=== PATIENT | female | born 1990 | race Caucasian/White ===

== ENCOUNTER 2018-08-08 14:36 | Emergency (ER) | payer SELFPAY ==
[~2018-08-08] VITALS: Ht 165.1 cm; Wt 74.0 kg
[2018-08-08 14:45] VITALS: BP 117/69; PULSE 70; RESP 24; Ht 165.1 cm; Wt 74.0 kg
--- NOTE | 2018-08-08 18:33 | ERD ---
ER Documentation Chief Complaint Chief Complaint VAGINAL BLEEDING - ; SENT BY PCP ( NO FHT) HPI History of Present Illness: 28-year-old female who denies a past medical history co Patient reports going to [facility] and there were no heart tones on ultrasound that she was sent to emergency department. justo in today due to vaginal bleeding while . Patient is G1, P0. According to last menstrual period she should be approximately 10 weeks and 6 days. Referral from clinic states that they measured approximately 7 weeks 5 days gestation but with no heart tones. Patient reports that she started spotting yesterday at approximately 1500 with light spotting, patient reports a little bit heavier spotting at 2300 last night. Patient reports that she has used to pantiliners today. Patient denies pain. At home pharmacological/nonpharmacological treatment for symptoms: Denies Denies social concerns; Denies recent foreign travel ROS All systems reviewed and are negative except as per history of present illness. Allergies Allergies: Coded Allergies: No Known Allergy (Unverified , 08/08/18) PMhx/Soc Medical and Surgical Hx: pt denies Medical Hx, pt denies Surgical Hx Hx Alcohol Use: No Hx Substance Use: No Hx Tobacco Use: No Smoking Status: Never smoker FmHx Family History: No diabetes, No coronary disease Physical Exam Vitals Vital Signs Date Temp Pulse Resp B/P (MAP) Pulse Ox O2 O2 Flow FiO2 Time Delivery Rate 08/08/18 98.6 70 24 117/69 98 14:45 (85) Physical Exam Const: No acute distress, afebrile Head: Atraumatic Eyes: Normal Conjunctiva ENT: Normal External Ears, Nose and Mouth. Neck: Full range of motion. No meningismus. Resp: Clear to auscultation bilaterally Cardio: Regular rate and rhythm, no murmurs Abd: Soft, non tender, non distended. No guarding, no masses, no rigidity Skin: No petechiae or rashes Back: No midline or flank tenderness Ext: No cyanosis, or edema Neur: Awake and alert x3, speaking in clear sentences, no focal deficits or facial asymmetry Psych: Normal Mood and Affect Result Diagram: 08/08/18 1517 Results 24 hrs Laboratory Tests Test 08/08/18 15:11 08/08/18 15:17 Urine Color YELLOW Urine Clarity CLEAR Urine pH 5.0 Urine Specific [place] 1.006 Urine Ketones 1+ mg/dL Urine Nitrite NEGATIVE mg/dL Urine Bilirubin NEGATIVE mg/dL Urine Urobilinogen NEGATIVE mg/dL Urine Leukocyte Esterase NEGATIVE Hero/ul Urine Microscopic RBC 5 /HPF Urine Microscopic WBC 1 /HPF Urine Squamous Epithelial Cells FEW /HPF Urine Bacteria FEW /HPF Urine Hemoglobin 2+ mg/dL Urine Glucose NEGATIVE mg/dL Urine Total Protein NEGATIVE mg/dl White Blood Count 6.2 10^3/ul Red Blood Count 4.90 10^6/ul Hemoglobin 12.5 g/dl Hematocrit 39.8 % Mean Corpuscular Volume 81.2 fl Mean Corpuscular Hemoglobin 25.5 pg Mean Corpuscular Hemoglobin Concent 31.4 g/dl Red Cell Distribution Width 23.8 % Platelet Count 244 10^3/UL Mean Platelet Volume 10.0 fl Immature Granulocytes % 0.200 % Neutrophils % 43.0 % Lymphocytes % 41.9 % Monocytes % 7.3 % Eosinophils % 7.1 % Basophils % 0.5 % Nucleated Red Blood Cells % 0.0 /100WBC Immature Granulocytes # 0.010 10^3/ul Neutrophils # 2.7 10^3/ul Lymphocytes # 2.6 10^3/ul Monocytes # 0.5 10^3/ul Eosinophils # 0.4 10^3/ul Basophils # 0.0 10^3/ul Nucleated Red Blood Cells # 0.0 10^3/ul Beta HCG, Quantitative 62951.0 mIU/ml Procedures/MDM ED COURSE: ED course includes a thorough examination and history. The patient was stable throughout ED course. I kept the patient and/or family informed of laboratory and diagnostic imaging results throughout the ED course. LABS: CBC: no e/o of systemic infection or severe anemia CMP: no e/o severe acidosis, alkalosis, renal failure, diabetic ketoacidosis, liver disease Urinalysis positive for 2+ hemoglobin, few bacteria. Rh/type: O+, no RhoGam indicated MEDICATIONS GIVEN IN ER: None DIAGNOSTIC IMAGING: Read by radiologist. IMPRESSION: 1-turo-5-day intrauterine gestation with demise. No subchorionic hemorrhage. .Michel Harris MD, MD Date Time Electronically viewed and signed by .Michel Harris MD, on 08/08/2018 16:42 PROCEDURES: None. MEDICAL DECISION MAKING: Low suspicion for life-threatening medical emergency. Otherwise healthy patient presenting with constellation of symptoms likely representing demise as characterized by history, physical exam findings, lab findings, imaging findings. Consultation with [facility] by phone: Spoke to heel sprayer and updated her on results. States that patient has an appointment already scheduled for tomorrow. Informed to tell patient to keep appointment as scheduled. Patient reassessment @ 1650: Results discussed with patient. Patient is visibly upset. Patient hemodynamically stable. No respiratory distress, otherwise relatively well appearing and nontoxic. Disposition given. Patient educated on diagnoses, prescriptions, follow-up care, return precautions. Strict return precautions given for worsening condition; questions answered discharge. Patient verbalizes understanding of discharge instructions. PRESCRIPTIONS FOR HOME: None DISPOSITION: DISCHARGE At this time, patient is stable for discharge and outpatient management. I have instructed the patient to follow-up with his/her primary care physician in 1-2 days. I have discussed with the patient the possibility of needing to see a specialist for further workup and imaging studies if symptoms persist. I have instructed the patient to promptly return to the ER for any new or worsening symptoms including increased pain, fever, nausea, vomiting, weakness or LOC. The patient and/or family expressed understanding of and agreement with this plan. All questions were answered. Home care instructions were provided. DISCLAIMER: Inadvertent spelling and grammatical errors are likely due to EHR/dictation software use and do not reflect on the overall quality of patient care. Also, please note that the electronic time recorded on this note does not necessarily reflect the actual time of the patient encounter. Departure Diagnosis: Primary Impression: demise Condition: Stable Patient Instructions: Understanding Miscarriage: Emotions, Missed Miscarriage Additional Instructions: Thank you very much for allowing us to participate in your care. Your health and safety is our top priority at [facility]. It is important to read all discharge instructions and education provided in your discharge packet. Keep your appointment that is scheduled tomorrow with your CUSTOMER ENERGY SPECIALIST. If the symptoms get worse and your provider is unavailable, return to the Emergency Department immediately. ARIC SIDHU NP Aug 08, 2018 18:33
== END 2018-08-08 17:02 | disposition home or self-care (01) ==
LOC: FTE 14:36
DX: O02.1 Missed abortion (principal)
CPT/HCPCS: 36415; 76801; 76817; 81001; 84702; 85025; 86900; 86901

== ENCOUNTER 2018-08-26 22:28 | Emergency (ER) | payer SELFPAY ==
[~2018-08-26] VITALS: Ht 165.1 cm; Wt 74.8 kg
[2018-08-26 22:31] VITALS: Ht 165.1 cm; Wt 74.8 kg
[2018-08-27] MEDS ORDERED: KETOROLAC 60 MG INJ IM STA (01:27)
--- NOTE | 2018-08-27 01:30 | ERD ---
ER Documentation Chief Complaint Chief Complaint VB, CRAMPING. RECENT MISCARRIAGE HPI Patient is a 28 years old female with no known past medical history presenting to the clinic with persistent vaginal bleeding and pelvic pain X 2 weeks. Patient was seen and evaluated on August 08 with demise. Patient reports she did not follow-up with her ANESTHESIOLOGIST ASSISTANT CERTIFIED. She reports her pain has worsened since the day of her miscarriage. Patient denies fever, chills, night sweats, abdominal pain, bloating, dysuria, urinary, urinary urgency, constipation, diarrhea. Patient reports the bleeding is persistent and heavy. ROS All systems reviewed and are negative except as per history of present illness. Allergies Allergies: Coded Allergies: No Known Allergy (Unverified , 08/08/18) PMhx/Soc History of Surgery: No Anesthesia Reaction: No Hx Neurological Disorder: No Hx Respiratory Disorders: No Hx Cardiac Disorders: No Hx Psychiatric Problems: No Hx Miscellaneous Medical Probl: No Hx Alcohol Use: No Hx Substance Use: No Hx Tobacco Use: No Smoking Status: Never smoker Physical Exam Vitals Vital Signs Date Temp Pulse Resp B/P (MAP) Pulse Ox O2 O2 Flow FiO2 Time Delivery Rate 08/26/18 97.2 77 20 142/87 100 22:31 (105) Physical Exam Const: Patient in some distress swelling in the form crying. Head: Atraumatic Eyes: Normal Conjunctiva Resp: Clear to auscultation bilaterally Cardio: Regular rate and rhythm, no murmurs Abd: Suprapubic tenderness, non distended. Normal bowel sounds Skin: No petechiae or rashes Back: No midline or flank tenderness. Negative CVAT. Neur: Awake and alert Psych: Normal Mood and Affect Patient denied vaginal/pelvic exam. Result Diagram: 08/27/18 0140 Results 24 hrs Laboratory Tests Test 08/27/18 01:40 White Blood Count 9.6 10^3/ul Red Blood Count 4.73 10^6/ul Hemoglobin 12.5 g/dl Hematocrit 39.0 % Mean Corpuscular Volume 82.5 fl Mean Corpuscular Hemoglobin 26.4 pg Mean Corpuscular Hemoglobin Concent 32.1 g/dl Red Cell Distribution Width 20.3 % Platelet Count 218 10^3/UL Mean Platelet Volume 10.0 fl Immature Granulocytes % 0.300 % Neutrophils % 60.7 % Lymphocytes % 29.1 % Monocytes % 7.5 % Eosinophils % 2.0 % Basophils % 0.4 % Nucleated Red Blood Cells % 0.0 /100WBC Immature Granulocytes # 0.030 10^3/ul Neutrophils # 5.8 10^3/ul Lymphocytes # 2.8 10^3/ul Monocytes # 0.7 10^3/ul Eosinophils # 0.2 10^3/ul Basophils # 0.0 10^3/ul Nucleated Red Blood Cells # 0.0 10^3/ul Urine Color STRAW Urine Clarity CLEAR Urine pH 7.0 Urine Specific [place] 1.012 Urine Ketones NEGATIVE mg/dL Urine Nitrite NEGATIVE mg/dL Urine Bilirubin NEGATIVE mg/dL Urine Urobilinogen NEGATIVE mg/dL Urine Leukocyte Esterase TRACE Hero/ul Urine Microscopic RBC 102 /HPF Urine Microscopic WBC 3 /HPF Urine Bacteria FEW /HPF Urine Hemoglobin 2+ mg/dL Urine Glucose NEGATIVE mg/dL Urine Total Protein NEGATIVE mg/dl Serum HCG, Qualitative POSITIVE Beta HCG, Quantitative 6159.2 mIU/ml Current Medications Medications Dose Sig/Ruth Start Time Status Last (Trade) Ordered Route PRN Stop Time Admin Dose Reason Admin Ketorolac 60 mg ONCE STAT 08/27/18 DC Tromethamine IM 01:27 (Toradol) 08/27/18 02:22 1 tab ONCE ONCE 08/27/18 DC 08/27/18 Acetaminophen PO 02:30 02:34 / 08/27/18 02:31 Hydrocodone Bitart (Ber[place] (5/325)) 200 mg ONCE ONCE 08/27/18 Phenazopyridi PO 04:00 ne HCl 08/27/18 04:01 (Pyridium) Procedures/MDM Patient was seen and evaluated for pelvic pain and vaginal bleeding. CBC, urinalysis revealed. Beta-hCG above 6000. Pelvic/vaginal ultrasound revealed 1. No intrauterine is visualized on this transabdominal study. 2. Endometrial stripe is thickened measuring up 2.7 cm that may be consistent with the history of bleeding. Patient was given Berwyn in ED without improvement of symptoms which is followed by Pyridium 200 mg. Patient will be discharged with Macrobid and Pyridium. Patient is stable ready for discharge. Follow-up with PCP and ANESTHESIOLOGIST ASSISTANT CERTIFIED (patient was advised about importance of ANESTHESIOLOGIST ASSISTANT CERTIFIED follow-up). Departure Diagnosis: Primary Impression: Vaginal bleeding Additional Impression: UTI (urinary tract infection) Urinary tract infection type: site unspecified Hematuria presence: without hematuria Qualified Codes: N39.0 - Urinary tract infection, site not specified Condition: Stable Patient Instructions: VBPG, Understanding Urinary Tract Infections (UTIs) Referrals: SAYDA BRYAN MD,ELMER JON MD, M.D., MARIE H MD BROOKS, MARLON MD BROUKHIM, BIJAN MD [facility] Additional Instructions: Patient advised to return to the ED immediately for new or worsening symptoms. Patient advised to follow up with primary care provider in the next 24-48 hours. Patient verbalized understanding and agrees with treatment plan and course of action. If patient has no primary care they may follow up with [facility] [address] [place] [id number] or [facility] [address] [place] [address] or [facility] [address] [place] [address] DEBRA MAYFIELD PA-C Aug 27, 2018 01:30
[2018-08-27] MEDS ORDERED: HYDROCODONE/APAP (5/325) TAB PO ONE (02:30)
[2018-08-27] MEDS ORDERED: PHEN-538 PO (03:55)
[2018-08-27] MEDS ORDERED: NITR-58 PO (03:55)
[2018-08-27] MEDS ORDERED: PHENAZOPYRIDINE 100 MG TAB PO ONE (04:00)
[2018-08-27 04:08] VITALS: BP 116/60; PULSE 64; RESP 16
== END 2018-08-27 04:02 | disposition home or self-care (01) ==
LOC: FTE 22:28
DX: N93.9 Abnormal uterine and vaginal bleeding, unspecified (principal); N39.0 Urinary tract infection, site not specified
CPT/HCPCS: 76856; 81001; 84702; 84703; 85025